=== PATIENT | male | born 1985 ===

== ENCOUNTER 2022-08-31 03:25 | Emergency (ER) | payer OTHER ==
[~2022-08-31] VITALS: Ht 177.8 cm; Wt 113.6 kg
[2022-08-31] MEDS ORDERED: IBUPROFEN 800 MG TAB PO ONE (03:45)
[2022-08-31] MEDS ORDERED: ACETAMINOPHEN 325 MG TAB PO ONE (03:45)
[2022-08-31 04:15] LABS: Basophils # (auto) 0.1 10 ^3/uL (0-0.2); Basophils % (auto) 0.7 % (0.0-2.0); Eosinophils # (auto) 0 10 ^3/uL (0-0.8); Eosinophils % (auto) 0.1 % (0.0-7.0); Hematocrit 50.8 % (41.0-53.0); Hemoglobin 17.3 g/dL (13.5-17.5); Lymphocytes # (auto) 1.5 10 ^3/uL (0.4-5.4); Lymphocytes % (auto) 7.8 % (10.0-50.0); Mean Corpuscular Hemoglobin 30.3 pg (28.0-32.0); Mean Corpuscular Hgb Conc. 34.2 g/dL (32.0-36.0); Mean Corpuscular Volume 88.8 fL (80.0-100.0); Monocytes # (auto) 0.5 10 ^3/uL (0-1.3); Monocytes % (auto) 2.5 % (0.0-12.0); Neutrophils % (auto) 88.9 % (37.0-80.0); Nucleated Red Blood Cells % 0.2 %; Red Blood Cells 5.72 10^6/uL (4.5-5.90); Red Cell Distribution Width 13.9 % (11.8-14.3); White Blood Cell 19.1 10^3/uL (4.4-10.8)
[2022-08-31 04:56] LABS: Albumin 4.5 g/dL (3.4-5.0); Calcium 8.8 mg/dL (8.5-10.1); Potassium 4.7 mmol/L (3.5-5.1)
[2022-08-31 04:58] LABS: Salicylate < 1.7 mg/dL (2.8-20.0)
[2022-08-31 05:00] LABS: BUN/Creatinine Ratio 9.7 (10.0-20.0); Bilirubin, Total 0.4 mg/dL (0.2-1.0); Total Protein 8.4 g/dL (6.4-8.2)
[2022-08-31 05:20] LABS: Acetaminophen < 2.0 ug/mL (10-30)
[2022-08-31 06:00] VITALS: BP 128/83
== END 2022-08-31 06:37 | disposition home or self-care (01) ==
LOC: ER 03:25 → EDBD 03:25 → ER 06:37
DX: S43.005A Unspecified dislocation of left shoulder joint, initial encounter (principal); F10.90 Alcohol use, unspecified, uncomplicated; V89.2XXA Person injured in unspecified motor-vehicle accident, traffic, initial encounter; Y93.89 Activity, other specified; Y92.89 Other specified places as the place of occurrence of the external cause; Y99.8 Other external cause status
CPT/HCPCS: 36415; 70450; 71045; 71250; 72125; 73030; 74176; 80053; 80320; 80329; 83690; 85025; 93005